=== PATIENT | male | born 1950 | race Caucasian/White ===

== ENCOUNTER 2020-03-11 11:50 | Emergency (ER) | payer OTHER ==
[~2020-03-11] VITALS: Ht 190.5 cm; Wt 127.0 kg
[2020-03-11 13:06] LABS: HEMATOCRIT 38.2 % (42.0-52.0); HEMOGLOBIN 13.4 gm/dL (14.0-18.0); MCH 29.9 pg (26.0-34.0); MCHC 35.1 g/dL (28.0-37.0); MCV 85.2 fL (80.0-100.0); PLATELET COUNT 247 thou/uL (150-400); RBC 4.48 mil/uL (4.50-6.00); RDW 13.9 % (10.5-14.5); WBC 6.3 thou/uL (4.0-11.0)
[2020-03-11 13:19] LABS: CALCIUM 8.9 mg/dL (8.5-10.1); CREATININE 0.9 mg/dL (0.7-1.3); POTASSIUM 3.8 mmol/L (3.5-5.1)
[2020-03-11 13:42] LABS: ABSOLUTE NEUTROPHILS 3.6 thou/uL (1.4-8.2)
[2020-03-11 13:43] LABS: ANISOCYTOSIS SLIGHT
[2020-03-11] MEDS ORDERED: HYDROCODON-ACE1 EAC7 PO (16:55)
[2020-03-11 18:25] VITALS: BP 164/87
== END 2020-03-11 18:00 | disposition home or self-care (01) ==
LOC: ER 11:50
PROVIDERS: Nurse Practitioner
DX: S73.005A Unspecified dislocation of left hip, initial encounter (principal); I10 Essential (primary) hypertension; E11.9 Type 2 diabetes mellitus without complications; X58.XXXA Exposure to other specified factors, initial encounter; Y93.89 Activity, other specified; Y92.89 Other specified places as the place of occurrence of the external cause; Y99.8 Other external cause status

== ENCOUNTER 2020-03-26 13:06 | Emergency (ER) | payer OTHER ==
[~2020-03-26] VITALS: Ht 190.5 cm; Wt 129.3 kg
[~2020-03-26 13:06] MED LIST: HYDROCODON-ACE1 EAC7 PO
[2020-03-26] MEDS ORDERED: LORCET 5-325 M1 EACH PO (14:47)
[2020-03-26 15:46] VITALS: BP 129/75
== END 2020-03-26 15:46 | disposition home or self-care (01) ==
LOC: ER 13:06
DX: S73.005A Unspecified dislocation of left hip, initial encounter (principal); I10 Essential (primary) hypertension; E11.9 Type 2 diabetes mellitus without complications; Z79.899 Other long term (current) drug therapy; X50.1XXA Overexertion from prolonged static or awkward postures, initial encounter; Y93.89 Activity, other specified; Y92.89 Other specified places as the place of occurrence of the external cause; Y99.8 Other external cause status